=== PATIENT | female | born 1960 | race American Indian/Alaskan Native ===

== ENCOUNTER 2018-02-25 10:14 | Outpatient (CLI) | payer MEDICARE ==
--- NOTE | 2018-02-26 08:31 | Mammography Report ---
BILATERAL DIGITAL SCREENING MAMMOGRAM WITH CAD:02/25/18 00:00:00 CLINICAL: Baseline screening. COMPARISON:None. FINDINGS: The breasts are heterogeneously dense, which may obscure small masses. Bilateral asymmetries with architectural distortion require additional imaging. No suspicious calcifications. IMPRESSION: Bilateral asymmetries with architectural distortion requiring further workup. BI-RADS CATEGORY: 0 -- Needs Additional Imaging RECOMMENDATION: Recall for bilateral true lateral and spot magnification views and bilateral breast ultrasound if needed. ACR BI-RADS MAMMOGRAPHIC CODES: 0 = Needs additional imaging evaluation; 1 = Negative; 2 = Benign; 3 = Probably benign; 4 = Suspicious; 5 = Malignant; 6 = Known biopsy-proven malignancy COMMENT: 1. Dense breast tissue, i.e., adenosis, fibrocystic changes, etc., may obscure an underlying neoplasm. 2. Approximately 10% of cancers are not detected with mammography. 3. A negative mammography report should not delay biopsy if a clinically suspicious mass is present.
== END 2018-02-25 10:15 | disposition home or self-care (01) ==
LOC: SPVWC 10:14
PROVIDERS: ATTEND Nurse Practitioner Gerontology
DX: Z12.31 Encounter for screening mammogram for malignant neoplasm of breast (principal)
CPT/HCPCS: 77067